=== PATIENT | female | born 1935 | race Caucasian/White ===

== ENCOUNTER → 2017-04-07 | Outpatient (CLI) | payer MEDICARE ==
[~2017-04-07] MED LIST: BACTROBAN CREAM30 G1 TOP; KEFLEX500 MG PO; UNICOMPLEX M TA1 TA1 PO; VALTREX1000 MG PO
== END ==
LOC: M.WC 03-31 11:00
DX: I87.332 Chronic venous hypertension (idiopathic) with ulcer and inflammation of left lower extremity (principal); E11.622 Type 2 diabetes mellitus with other skin ulcer; L97.321 Non-pressure chronic ulcer of left ankle limited to breakdown of skin; L97.221 Non-pressure chronic ulcer of left calf limited to breakdown of skin

== ENCOUNTER → 2017-04-28 | Outpatient (CLI) | payer MEDICARE | LOC: M.WC 01:49 | DX: E11.622 Type 2 diabetes mellitus with other skin ulcer (principal); L97.321 Non-pressure chronic ulcer of left ankle limited to breakdown of skin; I87.332 Chronic venous hypertension (idiopathic) with ulcer and inflammation of left lower extremity; L97.221 Non-pressure chronic ulcer of left calf limited to breakdown of skin ==

== ENCOUNTER → 2017-05-05 | Outpatient (CLI) | payer MEDICARE | LOC: M.WC 01:44 | DX: I87.332 Chronic venous hypertension (idiopathic) with ulcer and inflammation of left lower extremity (principal); E11.622 Type 2 diabetes mellitus with other skin ulcer; I70.242 Atherosclerosis of native arteries of left leg with ulceration of calf; I70.243 Atherosclerosis of native arteries of left leg with ulceration of ankle; L97.321 Non-pressure chronic ulcer of left ankle limited to breakdown of skin; L97.221 Non-pressure chronic ulcer of left calf limited to breakdown of skin ==

== ENCOUNTER → 2017-05-19 | Outpatient (CLI) | payer MEDICARE | LOC: M.WC 00:56 | DX: I87.332 Chronic venous hypertension (idiopathic) with ulcer and inflammation of left lower extremity (principal); E11.622 Type 2 diabetes mellitus with other skin ulcer; L97.321 Non-pressure chronic ulcer of left ankle limited to breakdown of skin; L97.221 Non-pressure chronic ulcer of left calf limited to breakdown of skin ==

== ENCOUNTER → 2017-06-02 | Outpatient (CLI) | payer MEDICARE | LOC: M.WC 01:35 | DX: E11.622 Type 2 diabetes mellitus with other skin ulcer (principal); L97.321 Non-pressure chronic ulcer of left ankle limited to breakdown of skin; I70.243 Atherosclerosis of native arteries of left leg with ulceration of ankle; L97.221 Non-pressure chronic ulcer of left calf limited to breakdown of skin; I87.332 Chronic venous hypertension (idiopathic) with ulcer and inflammation of left lower extremity ==

== ENCOUNTER → 2017-07-14 | Outpatient (CLI) | payer MEDICARE | LOC: M.WC 10:30 | DX: E11.622 Type 2 diabetes mellitus with other skin ulcer (principal); L97.821 Non-pressure chronic ulcer of other part of left lower leg limited to breakdown of skin; I87.332 Chronic venous hypertension (idiopathic) with ulcer and inflammation of left lower extremity; E11.621 Type 2 diabetes mellitus with foot ulcer; L97.521 Non-pressure chronic ulcer of other part of left foot limited to breakdown of skin; L89.892 Pressure ulcer of other site, stage 2 ==

== ENCOUNTER → 2017-08-04 | Outpatient (CLI) | payer MEDICARE | LOC: M.WC 01:33 | DX: E11.622 Type 2 diabetes mellitus with other skin ulcer (principal); I87.332 Chronic venous hypertension (idiopathic) with ulcer and inflammation of left lower extremity; L97.321 Non-pressure chronic ulcer of left ankle limited to breakdown of skin; L97.221 Non-pressure chronic ulcer of left calf limited to breakdown of skin; R73.09 Other abnormal glucose ==

== ENCOUNTER → 2017-08-25 | Outpatient (CLI) | payer MEDICARE | LOC: M.WC 03:51 | DX: E11.622 Type 2 diabetes mellitus with other skin ulcer (principal); I87.332 Chronic venous hypertension (idiopathic) with ulcer and inflammation of left lower extremity; L97.221 Non-pressure chronic ulcer of left calf limited to breakdown of skin; L97.321 Non-pressure chronic ulcer of left ankle limited to breakdown of skin; R73.09 Other abnormal glucose ==

== ENCOUNTER → 2017-09-15 | Outpatient (CLI) | payer MEDICARE | LOC: M.WC 02:26 | DX: E11.622 Type 2 diabetes mellitus with other skin ulcer (principal); I87.332 Chronic venous hypertension (idiopathic) with ulcer and inflammation of left lower extremity; L97.221 Non-pressure chronic ulcer of left calf limited to breakdown of skin; L97.321 Non-pressure chronic ulcer of left ankle limited to breakdown of skin; E11.621 Type 2 diabetes mellitus with foot ulcer; L97.521 Non-pressure chronic ulcer of other part of left foot limited to breakdown of skin; L89.892 Pressure ulcer of other site, stage 2 ==

== ENCOUNTER → 2017-10-06 | Outpatient (CLI) | payer MEDICARE | LOC: M.WC 01:38 | DX: E11.622 Type 2 diabetes mellitus with other skin ulcer (principal); I87.332 Chronic venous hypertension (idiopathic) with ulcer and inflammation of left lower extremity; L97.221 Non-pressure chronic ulcer of left calf limited to breakdown of skin; L97.321 Non-pressure chronic ulcer of left ankle limited to breakdown of skin; E11.621 Type 2 diabetes mellitus with foot ulcer; L89.892 Pressure ulcer of other site, stage 2; L97.521 Non-pressure chronic ulcer of other part of left foot limited to breakdown of skin ==

== ENCOUNTER → 2017-10-20 | Outpatient (CLI) | payer MEDICARE | LOC: M.WC 03:52 | DX: E11.622 Type 2 diabetes mellitus with other skin ulcer (principal); I87.332 Chronic venous hypertension (idiopathic) with ulcer and inflammation of left lower extremity; L97.822 Non-pressure chronic ulcer of other part of left lower leg with fat layer exposed; I70.248 Atherosclerosis of native arteries of left leg with ulceration of other part of lower leg; L97.821 Non-pressure chronic ulcer of other part of left lower leg limited to breakdown of skin; E11.621 Type 2 diabetes mellitus with foot ulcer; L89.892 Pressure ulcer of other site, stage 2; L97.521 Non-pressure chronic ulcer of other part of left foot limited to breakdown of skin ==

== ENCOUNTER → 2017-12-07 | Outpatient (CLI) | payer MEDICARE | LOC: M.WC 04:45 | DX: E11.622 Type 2 diabetes mellitus with other skin ulcer (principal); L97.321 Non-pressure chronic ulcer of left ankle limited to breakdown of skin; L97.221 Non-pressure chronic ulcer of left calf limited to breakdown of skin; I87.332 Chronic venous hypertension (idiopathic) with ulcer and inflammation of left lower extremity; I70.242 Atherosclerosis of native arteries of left leg with ulceration of calf ==

== ENCOUNTER → 2017-12-22 | Outpatient (CLI) | payer MEDICARE | LOC: M.WC 12-15 10:30 | DX: E11.622 Type 2 diabetes mellitus with other skin ulcer (principal); L97.321 Non-pressure chronic ulcer of left ankle limited to breakdown of skin; I87.332 Chronic venous hypertension (idiopathic) with ulcer and inflammation of left lower extremity; I70.243 Atherosclerosis of native arteries of left leg with ulceration of ankle ==

== ENCOUNTER → 2018-01-05 | Outpatient (CLI) | payer MEDICARE | LOC: M.WC 04:56 | DX: E11.622 Type 2 diabetes mellitus with other skin ulcer (principal); I87.332 Chronic venous hypertension (idiopathic) with ulcer and inflammation of left lower extremity; L97.321 Non-pressure chronic ulcer of left ankle limited to breakdown of skin; I70.243 Atherosclerosis of native arteries of left leg with ulceration of ankle; L84 Corns and callosities ==

== ENCOUNTER → 2018-02-02 | Outpatient (CLI) | payer MEDICARE | LOC: M.WC 01-19 10:30 | DX: E11.622 Type 2 diabetes mellitus with other skin ulcer (principal); I87.332 Chronic venous hypertension (idiopathic) with ulcer and inflammation of left lower extremity; I70.243 Atherosclerosis of native arteries of left leg with ulceration of ankle; L97.321 Non-pressure chronic ulcer of left ankle limited to breakdown of skin ==

== ENCOUNTER → 2018-02-16 | Outpatient (CLI) | payer MEDICARE | LOC: M.WC 04:49 | DX: E11.622 Type 2 diabetes mellitus with other skin ulcer (principal); I87.332 Chronic venous hypertension (idiopathic) with ulcer and inflammation of left lower extremity; I70.248 Atherosclerosis of native arteries of left leg with ulceration of other part of lower leg; L97.322 Non-pressure chronic ulcer of left ankle with fat layer exposed; L84 Corns and callosities ==

== ENCOUNTER → 2018-07-26 | Outpatient (CLI) | payer MEDICARE | LOC: M.WC 08:00 | DX: T81.89XA Other complications of procedures, not elsewhere classified, initial encounter (principal); E11.622 Type 2 diabetes mellitus with other skin ulcer; I87.332 Chronic venous hypertension (idiopathic) with ulcer and inflammation of left lower extremity; L97.222 Non-pressure chronic ulcer of left calf with fat layer exposed; L97.212 Non-pressure chronic ulcer of right calf with fat layer exposed; Y92.89 Other specified places as the place of occurrence of the external cause; Y83.8 Other surgical procedures as the cause of abnormal reaction of the patient, or of later complication, without mention of misadventure at the time of the procedure ==

== ENCOUNTER → 2018-08-23 | Outpatient (CLI) | payer MEDICARE | LOC: M.WC 02:31 | DX: T81.89XD Other complications of procedures, not elsewhere classified, subsequent encounter (principal); I87.332 Chronic venous hypertension (idiopathic) with ulcer and inflammation of left lower extremity; L97.221 Non-pressure chronic ulcer of left calf limited to breakdown of skin; L97.321 Non-pressure chronic ulcer of left ankle limited to breakdown of skin; Y83.8 Other surgical procedures as the cause of abnormal reaction of the patient, or of later complication, without mention of misadventure at the time of the procedure ==

== ENCOUNTER → 2018-09-13 | Outpatient (CLI) | payer MEDICARE | LOC: M.WC 04:59 | DX: E11.622 Type 2 diabetes mellitus with other skin ulcer (principal); I87.332 Chronic venous hypertension (idiopathic) with ulcer and inflammation of left lower extremity; L97.221 Non-pressure chronic ulcer of left calf limited to breakdown of skin; L97.321 Non-pressure chronic ulcer of left ankle limited to breakdown of skin ==

== ENCOUNTER → 2018-10-11 | Outpatient (CLI) | payer MEDICARE | LOC: M.WC 05:16 | DX: E11.622 Type 2 diabetes mellitus with other skin ulcer (principal); I87.332 Chronic venous hypertension (idiopathic) with ulcer and inflammation of left lower extremity; L97.221 Non-pressure chronic ulcer of left calf limited to breakdown of skin; L97.321 Non-pressure chronic ulcer of left ankle limited to breakdown of skin ==

== ENCOUNTER → 2018-11-01 | Outpatient (CLI) | payer MEDICARE | LOC: M.WC 05:12 | DX: I87.332 Chronic venous hypertension (idiopathic) with ulcer and inflammation of left lower extremity (principal); L97.222 Non-pressure chronic ulcer of left calf with fat layer exposed; L97.321 Non-pressure chronic ulcer of left ankle limited to breakdown of skin ==

== ENCOUNTER → 2018-11-22 | Outpatient (CLI) | payer MEDICARE | LOC: M.WC 02:03 | DX: E11.622 Type 2 diabetes mellitus with other skin ulcer (principal); I87.332 Chronic venous hypertension (idiopathic) with ulcer and inflammation of left lower extremity; L97.222 Non-pressure chronic ulcer of left calf with fat layer exposed; L97.822 Non-pressure chronic ulcer of other part of left lower leg with fat layer exposed; I87.311 Chronic venous hypertension (idiopathic) with ulcer of right lower extremity; L97.312 Non-pressure chronic ulcer of right ankle with fat layer exposed ==

== ENCOUNTER 2018-12-13 05:28 | Inpatient (IN) | payer MEDICARE ==
[~2018-12-13] VITALS: Ht 152.4 cm; Wt 44.5 kg
[2018-12-13 12:00] VITALS: BP 189/152
[2018-12-13] MEDS ORDERED: FISH OIL 1,001000 M2 PO (12:03)
[2018-12-13] MEDS ORDERED: SELENIMIN50 MCG PO (12:04)
[2018-12-13 13:55] LABS: URINE BILIRUBIN NEGATIVE (Negative); URINE BLOOD 1+ (Negative); URINE CLARITY CLEAR; URINE COLOR YELLOW; URINE GLUCOSE-RANDOM NEGATIVE (Negative); URINE KETONES NEGATIVE (Negative); URINE PROTEIN NEGATIVE (Negative); URINE UROBILINOGEN 0.2 E.U./dl (0.2-1.0)
[2018-12-13 14:02] LABS: URINE LEUKOCYTES-REFLEX 2+ (Negative); URINE NITRITE-REFLEX POSITIVE (Negative)
[2018-12-13 14:06] LABS: BACTERIA-REFLEX >30 Many /HPF (None Seen); CASTS None Seen /LPF (None Seen); CRYSTALS None Seen /LPF (None Seen); SQUAMOUS 0-3 Few /LPF (0-3); URINE RBC 0-2 Rare /HPF (0-2)
[2018-12-13 14:08] LABS: ALBUMIN 3.1 g/dL (3.4-5.0); CALCIUM 9.4 mg/dL (8.5-10.1); CREATININE 0.7 mg/dL (0.6-1.3); MAGNESIUM 2.1 mg/dL (1.8-2.4); POTASSIUM 3.8 mmol/L (3.5-5.1); TOTAL BILIRUBIN 0.3 mg/dL (<0.1-1.0); TOTAL PROTEIN 7.8 g/dL (6.4-8.2)
[2018-12-13 15:18] VITALS: BP 140/69
--- NOTE | 2018-12-13 16:45 | NUR ---
PATIENT DIRECT ADMIT FROM THE WOUND CARE CENTER. ALERT AND ORIENTED X 4, BUT A POOR HISTORIAN AT TIMES. PATIENT VERY TEARFUL AND STATING HER LEGS ARE VERY SORE. DR. NUÑEZ ADMITTING. NOTIFIED THAT PATIENT IN NEED OF PAIN MEDICATION. EUGENE RN FROM INFUSION STARTED IV TO RIGHT FOREARM WHICH BECAME INFILTRATED, IV TO LEFT FOREARM STARTED AND IVF INFUSING. UA SENT ORDERED AND DR. NUÑEZ NOTIFIED OF UTI. DAILY IV ROCEPHIN STARTED. ISIDRO CONNER FROM VASCULAR HERE AND SAW PATIENT. DR. DAVE FROM ID HERE TO SEE PATIENT. PATIENT ASKED ADMISSION QUESTIONS AND QUESTIONS BY MED STUDENT AND PATIENT CONTINUALLY SAYING "JUST ASK MY SON." PRN FENTANYL WAS ORDERED AND GIVEN TO PATIENT, PATIENT CALM THIS EVENING AND STATED HER PAIN WAS MUCH BETTER. CXR ORDERED AND RESULTS NEGATIVE. VITALS CHARTED. PATIENT DID REFUSE TO REMOVE HOME CLOTHING AND SHOES FOR NURSE. ORIENTED TO CALL LIGHT. CALL LIGHT WITHIN REACH, WILL CONTINUE TO MONITOR.
[2018-12-13 20:00] VITALS: BP 139/71
[2018-12-14 03:48] LABS: HEMATOCRIT 32.9 % (37.0-47.0); HEMOGLOBIN 10.9 gm/dL (12.0-15.0); MCH 29.9 pg (26.0-34.0); MCHC 33.2 g/dL (28.0-37.0); MCV 89.8 fL (80.0-100.0); MPV 7.9 fl. (7.2-11.1); RBC 3.66 mil/uL (4.20-5.00); RDW-CV 15.1 % (10.5-14.5); WBC 5.6 thou/uL (4.0-11.0)
[2018-12-14 05:32] LABS: ALBUMIN 2.4 g/dL (3.4-5.0); CALCIUM 8.3 mg/dL (8.5-10.1); CREATININE 0.7 mg/dL (0.6-1.3); TOTAL BILIRUBIN 0.2 mg/dL (<0.1-1.0); TOTAL PROTEIN 6.4 g/dL (6.4-8.2)
--- NOTE | 2018-12-14 05:40 | NUR ---
PT ALERT AND ORIENTED. VSS ON RA. ASSESSMENT DOCUMENTED. MEDS GIVEN PER EMAR. PAIN MEDS GIVEN PRN. PT SLEPT MOST OF SHIFT. PT HAS ALL BELONGINGS EXCEOT SHOES IN BED WITH HER. PT WEAR GLOVES. SHE SAYS "IT PREVENTS HER FINGER NAILS FROM GETTING ROUGH". PT EDUCATED ON IMPORTANCE OF CHANGING BRIEFS AAS NEEDED. BRIEFS AND PADS PROVIDED. CALL LIGHT WITHIN REACH. HOURLY ROUNDINGS MADE. WILL CONTINUE TO MONITOR.
[2018-12-14 07:50] VITALS: BP 112/45
--- NOTE | 2018-12-14 13:36 | NUR ---
SW met with pt to complete initial assessment, introduce self, and SW role. Pt alert, oriented, talkative. Pt participated in OT this morning. Pt lives at home with son support. Pt is spiritual as well. Pt lives in mobile home. Pt current with care at [facility] wound center. Pt does not have HH services, pt uses a quad cane. SW to continue to follow to assist with safe dc planning.
[2018-12-14 16:00] VITALS: BP 121/54
--- NOTE | 2018-12-14 16:28 | NUR ---
WOUND CARE NOTE: CONSULT RECEIVED FOR BLE CELLULITIS/WOUNDS. PATIENT WAS DIRECT ADMIT FROM WOUND CENTER. PATIENT EXTREMELY ANXIOUS DURING ASSESSMENT AND DRESSING CHANGES. REPEATS 'OH IT HURTS, OH IT HURTS', PATIENT HAD JUST BEEN GIVEN PAIN MEDICAITONS AND ATTEMPTED TO ASSIST WITH DEEP BREATHING FOR ANXIETY RELIEF. PATIENT LIKES TO HAVE ALL BELONGINGS NEAR HER IN BED. RIGHT LEG: CHRONIC VENOUS INSUFFICIENCY SKIN CHANGES NOTED (HEMOSIDERIN STAINING, FLAKY SKIN) ULCERATION TO THE MEDIAL ASPECT, AT MALLEOLUS. WOUND BED IS MOIST, WITH YELLOW ADHERENT SLOUGH TISSUE. CLEANSED WITH SALINE. OBTAINED CULTURES. APPLIED LOTION TO INTACT SKIN. APPLIED AQUACEL AG TO ULCER. COVERED WITH ABD. SECURED WITH SOFT CAST PADDING, KERLIX, THEN SAEID WRAP. LEFT LEG: CHRONIC VENOUS INSUFFICIENCY SKIN CHANGES NOTED (HEMOSIDERIN STAINING, FLAKY SKIN). SMALL PINPOINT LESIONS NOTED TO BOTH LATERAL AND MEDIAL ASPECTS OF THE HIND FOOT. COVERED WITH AQUACEL AG AND SECURED WITH SOFT CAST PADDING, KERLIX, THEN SAEID WRAP. PATIENT ANXIOUS ABOUT GOING HOME TOO EARLY. EDUCATED THAT SHE WAS NOT GOING ANYWHERE TODAY. PATIENT WANTS TO HAVE HER WOUND ALL HEALED BEFORE SHE GOES HOME. EDUCATED THAT THAT MIGHT NOT BE THE CASE. PATIENT FEARFUL THAT NO ONE IS GOING TO TAKE CARE OF HER WOUNDS WHEN SHE GETS HOME. HOWEVER, THE PATIENT STATED THAT SHE HAD HOME HEALTH TWICE A WEEK NORMALLY. EDUCATED PATIENT THAT SHE WOULD HAVE THEM TO HELP HER, BUT THE PATIENT STATED THEY DON'T DO GOOD OF A JOB HERE. ENCOURAGED PATIENT THAT SHE WOULD BE WELL TAKEN CARE. RECOMMEND DAILY DRESSING CHANGES-PREMEDICATE BEFORE CHANGING. PATIENT HAS SEVERE PAIN FROM WOUNDS ENCOURAGE GOOD NUTRTION/HYDRATION FOLLOW UP IN WOUND CENTER UPON DISCHARGE
--- NOTE | 2018-12-14 17:52 | NUR ---
PATIENT GIVEN PRN HYRODOCONE FOR QUIANA LE PAIN. IVF AND SCHED ABX INFUSING ORDERED. PATIENT UP TO CHAIR WITH PT AND OT BUT REFUSED TO STAY IN CHAIR. DRESSINGS CHANGED TO QUIANA LE'S BY WOUND CARE, WOUND CULTURES OBTAINED FROM [facility] LEG PER DR. MANCILLA REQUEST. PATIENT CONTINUES TO REFUSE TO GET UP TO BATHROOM, USING BEDPAN. VASC AND ID AWARE OF QUIANA US OF LE'S FROM LAST EVENING.
[2018-12-14 19:40] VITALS: BP 124/70
[2018-12-15 04:32] LABS: ABSOLUTE BASOPHILS 0.1 thou/uL (0.0-0.2); ABSOLUTE EOSINOPHILS 0.2 thou/uL (0.0-0.7); ABSOLUTE LYMPHOCYTES 0.8 thou/uL (0.8-5.3); ABSOLUTE MONOCYTES 0.6 thou/uL (0.0-1.2); ABSOLUTE NEUTROPHILS 2.4 thou/uL (1.6-8.1); BASOPHILS 1.3 %; EOSINOPHILS 5.1 %; HEMATOCRIT 31.1 % (37.0-47.0); HEMOGLOBIN 10.3 gm/dL (12.0-15.0); LYMPHOCYTES 19.5 %; MCV 90.9 fL (80.0-100.0); MONOCYTES 14.1 %; MPV 8.1 fl. (7.2-11.1); NUCLEATED RBCS 0 /100WBC; PLATELET COUNT* 258 thou/uL (150-400); RBC 3.42 mil/uL (4.20-5.00); RDW-CV 15.3 % (10.5-14.5)
[2018-12-15 04:47] LABS: ANION GAP 5 mmol/L (7-16); BUN 22 mg/dL (7-18); CHLORIDE 109 mmol/L (98-107); CO2 26 mmol/L (21-32); CREATININE 0.7 mg/dL (0.6-1.3); GLUCOSE 108 mg/dL (70-99); MAGNESIUM 1.9 mg/dL (1.8-2.4); PHOSPHORUS* 2.9 mg/dL (2.5-4.9); POTASSIUM 4.3 mmol/L (3.5-5.1); SODIUM 140 mmol/L (136-145)
[2018-12-15 05:02] LABS: CHOLESTEROL 123 mg/dL (<200); HDL CHOLESTEROL 49 mg/dL (>40); LDL CHOLESTEROL 59 mg/dL (<100); SERUM ASSESSMENT Clear; TC:HDL 2.5 Ratio (Not establshd); TRIGLYCERIDE 79 mg/dL (<150); VLDL 16 mg/dL (<40)
--- NOTE | 2018-12-15 05:50 | CON ---
[address] [address] CONSULTATION Name: ANGELA GARCIA Room: [address] IN .R.#: [id number] Admission: 12/13/18 Attend Phys: Vadim Mosley Discharge: Date of : 35 Report #: [id number] THIS REPORT FOR: //name// CC: Radha Azul DATE OF SERVICE: 12/13/2018 INFECTIOUS DISEASE CONSULTATION ATTENDING PHYSICIAN: Chester Azul DO REASON FOR EVALUATION: Chronic right lower extremity wounds complicated by skin and soft tissue infection, cellulitis. HISTORY OF PRESENT ILLNESS: Chart is reviewed and the patient is examined. This is an 82-year-old woman with apparent history of peripheral vascular disease, has chronic wounds. She is quite distressed. She is unable to give any details of her history. It is not clear that if she has got a degree of dementia, but she is crying out in pain. On questioning, it is not clear if she has had recent fever. She denies, I believe, any pulmonary-related complaints. She was seen in the [facility], who has referred for direct admission. Evaluation noted pyuria and bacteriuria, normal lactic acid. Chest x-ray showed just scattered patchy interstitial prominence, felt to be more chronic in nature. She is empirically started on antimicrobials with ceftriaxone. ALLERGIES: None known. MEDICATIONS: Current medicines include ceftriaxone, p.r.n. analgesics, antiemetics, zolpidem, and melatonin. PAST MEDICAL HISTORY: Reportedly has vascular disease, chronic bilateral lower extremity wounds involving the legs. PAST SURGICAL HISTORY: Bilateral foot surgeries. SOCIAL HISTORY: Nonsmoker, no ethanol, no illicit drug use. FAMILY HISTORY: Noncontributory. REVIEW OF SYSTEMS: Not reliably obtained. PHYSICAL EXAMINATION: GENERAL: Moderate to marked distress apparently attributed to pain, unable to redirect her, appears chronically ill, [place] [address] CONSULTATION Name: ANGELA GARCIA Room: [address]#: [id number] Admission: 12/13/18 Attend Phys: Vadim Mosley Discharge: Date of : 35 Report #: [id number] VITAL SIGNS: Temperature 98.5, pulse 72, respirations 20, and blood pressure 140/69. SKIN: Warm, dry. I do not appreciate any rashes. HEENT: Normocephalic. Extraocular muscles are intact. NECK: Supple. LUNGS: Diminished breath sounds. A few scattered crackles at the bases. HEART: Regular with occasional ectopy. ABDOMEN: Soft, nontender, no peritoneal signs. EXTREMITIES: Bilateral lower extremities have compression layered wraps to below the knee. GENITOURINARY AND RECTAL: Deferred. IMAGING: Chest x-ray as noted above. LABORATORY DATA: Lactic acid is 0.8. Electrolytes: Sodium 138, potassium 3.8, chloride 101, bicarbonate 25, anion gap of 12, BUN and creatinine 26 and 0.7, glucose of 93, albumin of 3.1, total protein 7.8. LFTs are unremarkable. Urinalysis showed 16-25 white cells, greater than 30 bacteria. ASSESSMENT AND PLAN: Bilateral lower extremity ulcers, I suspect on the basis of venous stasis insufficiency, some underlying dermatitis, also may have some arterial disease as well. Vascular Surgery is to evaluate. We will continue empiric therapy with ceftriaxone. Wound care as prescribed. Secondly, she has apparent urinary tract infection. This should give us adequate coverage as well. At this point, it is certainly difficult to ascertain details and the extent of how her situation has deteriorated. It not clear if she is capable of independent living at this point. <ELECTRONICALLY SIGNED> By: Ortiz Rico MD 12/15/18 0550 [id number] Rico MD /nt
--- NOTE | 2018-12-15 06:34 | NUR ---
PT ALERT AND ORIENTED. SEEMS FORGETFUL AT TIMES. SOMETIMES ANXIOUS. VSS ON RA. ASSESSMENT DOCUMENTED. PO PAIN MEDS GIVEN THIS SHIFT. PT SLEPT MOST OF SHIFT. LFA IV WITH NS @ 50ML/HR. MEDS PER EMAR. PT HAS ALL BELONGINGS IN BED. CALL LIGHT WITHIN REACH. HOURLY ROUNDINGS MADE. WILL CONTINUE TO MONITOR.
[2018-12-15 07:10] VITALS: BP 137/63
[2018-12-15 16:00] VITALS: BP 173/62
--- NOTE | 2018-12-15 17:28 | NUR ---
PT REMAINED ALERT TO SELF AND SITUATION. PT RESTING IN BED. PT DENIES ANY PAIN, STATES DAYS SINCE LAST BM, MILK OF MG GIVEN TO ASSIST WELL PRUNE JUICE. AWAITING BM TODAY. FALL RISK PRECAUTIONS IN PLACE. HOURLY ROUNDING COMPLETED. WILL CONTINUE TO MONITOR.
[2018-12-15 20:00] VITALS: BP 149/63
--- NOTE | 2018-12-16 04:37 | NUR ---
PATIENT HAS REMAINED ALERT AND ORIENTED X 4 THROUGHOUT THE SHIFT BUT SOMEWHAT FORGETFUL OR HAS A ROUND ABOUT WAY OF STATING WHAT SHE IS THINKING. ASSISTED WITH BEDPAN PATIENT HAS REFUSED TO STAND TO VOID. MEDICATED X 2 FOR LE PAIN. BLE'S DRESSINGS ARE CLEAN AND DRY WITH PILLOW PROVIDED FOR ELEVATION. VITAL SIGNS STABLE. CONTINUE TO MONITOR.
[2018-12-16 07:30] VITALS: BP 135/51
[2018-12-16 17:00] VITALS: BP 129/63
--- NOTE | 2018-12-16 17:00 | NUR ---
PT REMAINED ALERT AND ORIENTED AND FORGETFUL. PT C/O CHEST PAIN, VITALS AND EKG COMPLETED. PT BP WAS 170'S, AFTER 10 MINUTES AND REST BP DECREASED TO 140. EKG NORMAL, PT PAIN RELIEVED. PT STATES THEY WANT A BM, SUPPOSITORY ADMINISTERED, AWAITING RESULTS. PT UP TO CHAIR FOR MEALS. FALL RISK PRECAUTIONS IN PLACE. HOURLY ROUNDING COMPLETED. WILL CONTINUE TO MONITOR.
[2018-12-16 19:50] VITALS: BP 134/53
--- NOTE | 2018-12-17 04:39 | NUR ---
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 NO FURTHER BM'S THIS SHIFT. DID STATE HER MID CHEST HURT. MYLANTA PROVIDED TO GOOD EFFECT. MEDICATED FOR LE PAIN X 1 ALSO TO GOOD EFFECT. UP TO COMMODE TO VOID WITH SOME STRESS INCONT. TRANSFERING WITH ASSIST OF ONE, CANE AND GAIT BELT. VITAL SIGNS STABLE. CONTINUE TO MONITOR.
[2018-12-17] MEDS ORDERED: BUSPIRONE HCL5 MG PO (10:23)
--- NOTE | 2018-12-17 10:24 | EKG ---
[place] [address] ELECTROCARDIOGRAM REPORT Name: ANGELA GARCIA Room: [address] ADM IN .R.#: [id number] Admission: 12/13/18 Attend Phys: Vadim Mosley Discharge: Date of : 35 Report #: [id number] THIS REPORT FOR: //name// [facility] Test Date: 2018-12-16 Test Time: 10:04:19 Pat Name: ANGELA GARCIA Department: Room: [address] Gender: F Residential Care Officer: : 1935 Requested By: Soni Urbina Order Number: [id number] Yovani MD: Dustin Adan Measurements Intervals [place] Rate: 70 P: 81 [place]: 172 QRS: 9 QRSD: 101 T: 18 QT: 419 QTc: 453 Interpretive Statements Sinus rhythm No previous ECG available for comparison Electronically Signed On 12-17-2018 10:24:39 CDT by Dustin Adan [email or web address] <ELECTRONICALLY SIGNED> By: Dustin Adan MD, [facility] 12/17/18 1024 1004 1004 Dustin Adan MD, [facility] /EPI
[2018-12-17 16:28] VITALS: BP 170/94
--- NOTE | 2018-12-17 16:30 | NUR ---
SPOKE WITH PT.ABOUT NEEDING TO GO TO A REHAB FACILITY FOR MORE THERAPIES AT DISCHARGE. SHE SAID I DON'T KNOW ANYTHING ABOUT THOSE. YOU'LL NEED TO CALL MY SON,MARIA DE JESUS.
--- NOTE | 2018-12-17 17:07 | EKG ---
[place] [address] ELECTROCARDIOGRAM REPORT Name: ANGELA GARCIA Room: [address] ADM IN .R.#: [id number] Admission: 12/13/18 Attend Phys: Vadim Mosley Discharge: Date of : 35 Report #: [id number] THIS REPORT FOR: //name// [facility] Test Date: 2018-12-16 Test Time: 16:19:45 Pat Name: ANGELA GARCIA Department: Room: [address] Gender: F Pneumatic Press Hand: : 1935 Requested By: Soni Urbina Order Number: [id number] Yovani MD: Dustin Adan Measurements Intervals [place] Rate: 71 P: 75 [place]: 163 QRS: -8 QRSD: 112 T: 53 QT: 420 QTc: 457 Interpretive Statements Sinus rhythm Borderline intraventricular conduction delay Low voltage, precordial leads Compared to ECG 12/16/2018 10:04:19 no change Electronically Signed On 12-17-2018 17:06:44 CDT by Dustin Adan [email or web address] <ELECTRONICALLY SIGNED> By: Dustin Adan MD, [facility] 12/17/18 9263 1619 1619 Dustin Adan MD, [facility] /EPI
--- NOTE | 2018-12-17 18:59 | NUR ---
PATIENT COOPERATIVE, ANXIOUS. FORGETFUL. UP TO CHAIR FOR MEALS. DRSG CHANGES TO BLE DONE THIS AM W/ DR DAVE IN TO SEE PATIENT AT THAT TIME. SEE MAR FOR PAIN INTERVENTION. USING QUAD CANE FOR TRANSFERS/AMBULATION W/ STAFF X1 PRESENT. RESTING IN BED AT THIS TIME. DENIES OTHER NURSING NEEDS AT THIS TIME. CALL LIGHT IN REACH. HRLY ROUNDS DONE. BED ALARM ON. ~TJRN
[2018-12-17 20:00] VITALS: BP 119/53
[2018-12-18 06:01] LABS: ABSOLUTE BASOPHILS 0.1 thou/uL (0.0-0.2); ABSOLUTE EOSINOPHILS 0.3 thou/uL (0.0-0.7); ABSOLUTE LYMPHOCYTES 0.9 thou/uL (0.8-5.3); ABSOLUTE MONOCYTES 0.6 thou/uL (0.0-1.2); ABSOLUTE NEUTROPHILS 2.7 thou/uL (1.6-8.1); BASOPHILS 1.2 %; EOSINOPHILS 6.9 %; HEMATOCRIT 30.9 % (37.0-47.0); HEMOGLOBIN 10.3 gm/dL (12.0-15.0); LYMPHOCYTES 19.9 %; MCH 30.3 pg (26.0-34.0); MCHC 33.4 g/dL (28.0-37.0); MCV 90.4 fL (80.0-100.0); MONOCYTES 12.3 %; MPV 7.9 fl. (7.2-11.1); NUCLEATED RBCS 0 /100WBC; PLATELET COUNT* 249 thou/uL (150-400); POLYS 59.7 %; RBC 3.42 mil/uL (4.20-5.00); RDW-CV 15.5 % (10.5-14.5); WBC 4.5 thou/uL (4.0-11.0)
[2018-12-18 06:36] LABS: CALCIUM 8.5 mg/dL (8.5-10.1); CREATININE 0.6 mg/dL (0.6-1.3); PHOSPHORUS* 2.4 mg/dL (2.5-4.9)
--- NOTE | 2018-12-18 06:41 | NUR ---
PATIENT HAS REMAINED ALERT AND ORIENTED X 4 THROUGHOUT THE SHIFT WITH FORGETFULNESS. FIXATED ON ALEXUS PEARSON TONIGHT. DRESSING BILAT LE'S CLEAN AND DRY. ELEVATED ON PILLOWS. UP TO BSC FOR VOIDS WITH MIN ASSIST, GAIT BELT AND CANE. INCONT WELL AT TIMES. VITAL SIGNS STABLE. ANTIBIOTICS PER ORDER. CONTINUE TO MONITOR.
[2018-12-18 07:30] VITALS: BP 145/86
[2018-12-18 08:55] LABS: URINE BILIRUBIN NEGATIVE (Negative); URINE BLOOD TRACE (Negative); URINE CLARITY CLEAR; URINE COLOR YELLOW; URINE GLUCOSE-RANDOM NEGATIVE (Negative); URINE KETONES NEGATIVE (Negative); URINE LEUKOCYTES-REFLEX NEGATIVE (Negative); URINE NITRITE-REFLEX NEGATIVE (Negative); URINE PROTEIN NEGATIVE (Negative); URINE SPECIFIC GRAVITY 1.015 (1.005-1.030); URINE UROBILINOGEN 0.2 E.U./dl (0.2-1.0)
--- NOTE | 2018-12-18 13:47 | NUR ---
This RN agrees with the assessment of Mary Reyes SN for 12/18/18 at 1330.
--- NOTE | 2018-12-18 16:00 | NUR ---
PT.UP IN CHAIR. LESS CONFUSED TODAY. ASKED HER IF HER SON HAD BEEN IN TODAY. SHE SAID FOR A LITTLE BIT HE HAD TO GET HOME. ASSISTED HER IN CALLING SON. SHE LEFT MESSAGE FOR HIM TO CALL THE NURSES STAIN [phone] AND TO TALK TO CM. HE CALLED A LITTLE WHILE LATER. DISCUSSED DISCHARGE PLAN. HE WAS AGREEABLE TO SNF. HE CHOSE [facility]. FAXED REFERRAL TO [facility]. ASKED HIM TO THINK OF 2ND CHOICE. HE SAID HE WOULD CALL ME WITH SECOND CHOICE.
[2018-12-18 16:01] VITALS: BP 127/67
--- NOTE | 2018-12-18 17:23 | NUR ---
PT REMAINED ALERT AND ORIENTED AND FORGETFUL. PT HAD MULTIPLE BMS TODAY. PT UP TO CHAIR FOR MEALS. FALL RISK PRECAUTIONS IN PLACE. HOURLY ROUNDING COMPLETED. WILL CONTINUE TO MONITOR.
[2018-12-18 20:00] VITALS: BP 136/63
--- NOTE | 2018-12-19 06:14 | NUR ---
PT ALERT AND ORIENTED. FORGETFUL. ASSESSMENT DOCUMENTED. MEDS GIVEN PER EMAR. PAIN MEDS GIVEN THIS SHIFT. RFA IV WITH NS @ 30ML/HR. PT TO BSC FOR VOIDING THIS SHIFT. PT SLEPT OFF AND ON THIS SHIFT. ANTICIPATED DC TO SNF. FALL PRECAUTION IN PLACE. HOURLY ROUNDINGS MADE. WILL CONTINUE TO MONITOR.
[2018-12-19] MEDS ORDERED: ASA81BEC PO (07:15)
[2018-12-19] MEDS ORDERED: HYDROCODON-ACE1 EAC7 PO (07:15)
[2018-12-19] MEDS ORDERED: VALTREX1000 MG PO (07:15)
[2018-12-19] MEDS ORDERED: VITAMINC500 PO (07:15)
[2018-12-19] MEDS ORDERED: VITAMIN D1000 UNI1 PO (07:15)
[2018-12-19] MEDS ORDERED: DOK PLUS TABLE1 EACH PO (07:15)
[2018-12-19] MEDS ORDERED: ACETAMINOPHEN325 M1 PO (07:15)
[2018-12-19] MEDS ORDERED: MELATONIN5 M1 PO (07:15)
[2018-12-19 07:25] VITALS: BP 156/76
--- NOTE | 2018-12-19 12:09 | NUR ---
FAXED REFERRAL TO [facility] THIS AM [facility] DID NOT HAVE ANY BEDS TODAY. SPOKE WITH SON,MARIA DE JESUS ,ON PHONE. HE WAS AREEABLE TO [facility]. ASKED HIM TO CALL [facility] [phone] SHE HAD A QUESTION ABOUT PT'S LAST SKILLED STAY, WHEN IT WAS. HE SAID HE WOULD CALL HER.
[2018-12-19] MEDS ORDERED: AMOXICILLIN 50500 MG PO (14:04)
[2018-12-19 14:13] VITALS: BP 156/76
[2018-12-19 14:19] VITALS: BP 156/76
[2018-12-19 15:37] VITALS: BP 156/76
--- NOTE | 2018-12-19 15:39 | NUR ---
PT CHART COPIED. IV REMOVED. PT BELONGINGS GATHERED. PT LEFT VIA WHEELVCHAIR WITH NURSING STAFF TO SKILLED FACILITY. FALL RISK PRECAUTIONS IN PLACE. HOURLY ROUNDING COMPLETED. WILL CONTINUE TO MONITOR.
== END 2018-12-19 15:41 | DRG 299 ==
LOC: M.WC 05:28 → M.ORTHSURG 11:48
PROVIDERS: Family Medicine; Specialist; ADMIT Internal Medicine
DX: I73.9 Peripheral vascular disease, unspecified (principal); G93.41 Metabolic encephalopathy; E43 Unspecified severe protein-calorie malnutrition; L03.116 Cellulitis of left lower limb; N39.0 Urinary tract infection, site not specified; L97.829 Non-pressure chronic ulcer of other part of left lower leg with unspecified severity; L97.819 Non-pressure chronic ulcer of other part of right lower leg with unspecified severity; Z68.1 Body mass index [BMI] 19.9 or less, adult; L03.115 Cellulitis of right lower limb; D50.9 Iron deficiency anemia, unspecified; D63.8 Anemia in other chronic diseases classified elsewhere; F41.9 Anxiety disorder, unspecified; G31.84 Mild cognitive impairment of uncertain or unknown etiology; B96.1 Klebsiella pneumoniae [K. pneumoniae] as the cause of diseases classified elsewhere; I87.8 Other specified disorders of veins; L30.9 Dermatitis, unspecified; B96.5 Pseudomonas (aeruginosa) (mallei) (pseudomallei) as the cause of diseases classified elsewhere

== ENCOUNTER → 2019-01-10 | Outpatient (CLI) | payer MEDICARE ==
[~2019-01-10] MED LIST changes: +ACETAMINOPHEN325 M1 PO; +AMOXICILLIN 50500 MG PO; +ASA81BEC PO; +BUSPIRONE HCL5 MG PO; +DOK PLUS TABLE1 EACH PO; +FISH OIL 1,001000 M2 PO; +HYDROCODON-ACE1 EAC7 PO; +MELATONIN5 M1 PO; +SELENIMIN50 MCG PO; +VITAMIN D1000 UNI1 PO; +VITAMINC500 PO
== END ==
LOC: M.WC 01-04 09:00
DX: E11.622 Type 2 diabetes mellitus with other skin ulcer (principal); I87.332 Chronic venous hypertension (idiopathic) with ulcer and inflammation of left lower extremity; L97.221 Non-pressure chronic ulcer of left calf limited to breakdown of skin; L97.821 Non-pressure chronic ulcer of other part of left lower leg limited to breakdown of skin; I87.2 Venous insufficiency (chronic) (peripheral)

== ENCOUNTER → 2019-01-24 | Outpatient (CLI) | payer MEDICARE | LOC: M.WC 00:46 | DX: E11.622 Type 2 diabetes mellitus with other skin ulcer (principal); I87.332 Chronic venous hypertension (idiopathic) with ulcer and inflammation of left lower extremity; L97.221 Non-pressure chronic ulcer of left calf limited to breakdown of skin; L97.321 Non-pressure chronic ulcer of left ankle limited to breakdown of skin; R23.8 Other skin changes ==

== ENCOUNTER → 2019-02-14 | Outpatient (CLI) | payer MEDICARE | LOC: M.WC 05:07 | DX: E11.622 Type 2 diabetes mellitus with other skin ulcer (principal); I87.332 Chronic venous hypertension (idiopathic) with ulcer and inflammation of left lower extremity; L97.322 Non-pressure chronic ulcer of left ankle with fat layer exposed; L97.222 Non-pressure chronic ulcer of left calf with fat layer exposed ==

== ENCOUNTER → 2019-03-08 | Outpatient (CLI) | payer MEDICARE | LOC: M.WC 03-07 10:30 | DX: E11.622 Type 2 diabetes mellitus with other skin ulcer (principal); I87.332 Chronic venous hypertension (idiopathic) with ulcer and inflammation of left lower extremity; L97.221 Non-pressure chronic ulcer of left calf limited to breakdown of skin; L97.321 Non-pressure chronic ulcer of left ankle limited to breakdown of skin ==

== ENCOUNTER → 2019-03-15 | Outpatient (CLI) | payer MEDICARE | LOC: M.WC 05:13 | DX: E11.622 Type 2 diabetes mellitus with other skin ulcer (principal); I87.332 Chronic venous hypertension (idiopathic) with ulcer and inflammation of left lower extremity; L97.222 Non-pressure chronic ulcer of left calf with fat layer exposed; L97.322 Non-pressure chronic ulcer of left ankle with fat layer exposed ==

== ENCOUNTER → 2019-03-22 | Outpatient (CLI) | payer MEDICARE | LOC: M.WC 04:57 | DX: E11.622 Type 2 diabetes mellitus with other skin ulcer (principal); I87.332 Chronic venous hypertension (idiopathic) with ulcer and inflammation of left lower extremity; L97.222 Non-pressure chronic ulcer of left calf with fat layer exposed; L97.322 Non-pressure chronic ulcer of left ankle with fat layer exposed ==

== ENCOUNTER → 2019-03-29 | Outpatient (CLI) | payer MEDICARE | LOC: M.WC 10:00 | DX: E11.622 Type 2 diabetes mellitus with other skin ulcer (principal); I87.332 Chronic venous hypertension (idiopathic) with ulcer and inflammation of left lower extremity; L97.221 Non-pressure chronic ulcer of left calf limited to breakdown of skin; L97.321 Non-pressure chronic ulcer of left ankle limited to breakdown of skin ==

== ENCOUNTER → 2019-04-02 | Outpatient (CLI) | payer MEDICARE | LOC: M.WC 04:31 | DX: I87.332 Chronic venous hypertension (idiopathic) with ulcer and inflammation of left lower extremity (principal); E11.622 Type 2 diabetes mellitus with other skin ulcer; L97.221 Non-pressure chronic ulcer of left calf limited to breakdown of skin; L97.321 Non-pressure chronic ulcer of left ankle limited to breakdown of skin ==

== ENCOUNTER → 2019-05-03 | Outpatient (CLI) | payer OTHER | LOC: M.WC 10:30 | DX: E11.622 Type 2 diabetes mellitus with other skin ulcer (principal); I87.332 Chronic venous hypertension (idiopathic) with ulcer and inflammation of left lower extremity; L97.321 Non-pressure chronic ulcer of left ankle limited to breakdown of skin; L97.221 Non-pressure chronic ulcer of left calf limited to breakdown of skin ==

== ENCOUNTER → 2019-05-10 | Outpatient (CLI) | payer OTHER | LOC: M.WC 05:14 | DX: E11.622 Type 2 diabetes mellitus with other skin ulcer (principal); I87.332 Chronic venous hypertension (idiopathic) with ulcer and inflammation of left lower extremity; L97.221 Non-pressure chronic ulcer of left calf limited to breakdown of skin; L97.321 Non-pressure chronic ulcer of left ankle limited to breakdown of skin ==

== ENCOUNTER → 2019-05-24 | Outpatient (CLI) | payer OTHER | LOC: M.WC 10:30 | DX: E11.622 Type 2 diabetes mellitus with other skin ulcer (principal); I87.332 Chronic venous hypertension (idiopathic) with ulcer and inflammation of left lower extremity; L97.221 Non-pressure chronic ulcer of left calf limited to breakdown of skin; L97.321 Non-pressure chronic ulcer of left ankle limited to breakdown of skin ==

== ENCOUNTER → 2019-05-31 | Outpatient (CLI) | payer OTHER | LOC: M.WC 04:04 | DX: E11.622 Type 2 diabetes mellitus with other skin ulcer (principal); I87.332 Chronic venous hypertension (idiopathic) with ulcer and inflammation of left lower extremity; I70.242 Atherosclerosis of native arteries of left leg with ulceration of calf; L97.221 Non-pressure chronic ulcer of left calf limited to breakdown of skin; I70.243 Atherosclerosis of native arteries of left leg with ulceration of ankle; L97.321 Non-pressure chronic ulcer of left ankle limited to breakdown of skin ==

== ENCOUNTER → 2019-06-14 | Outpatient (CLI) | payer MEDICARE | LOC: M.WC 10:29 | DX: E11.622 Type 2 diabetes mellitus with other skin ulcer (principal); I87.332 Chronic venous hypertension (idiopathic) with ulcer and inflammation of left lower extremity; L97.221 Non-pressure chronic ulcer of left calf limited to breakdown of skin; L97.321 Non-pressure chronic ulcer of left ankle limited to breakdown of skin ==

== ENCOUNTER → 2019-06-28 | Outpatient (CLI) | payer MEDICARE | LOC: M.WC 02:28 | DX: I87.332 Chronic venous hypertension (idiopathic) with ulcer and inflammation of left lower extremity (principal); L97.322 Non-pressure chronic ulcer of left ankle with fat layer exposed; L97.222 Non-pressure chronic ulcer of left calf with fat layer exposed; I87.311 Chronic venous hypertension (idiopathic) with ulcer of right lower extremity; L97.811 Non-pressure chronic ulcer of other part of right lower leg limited to breakdown of skin; I87.2 Venous insufficiency (chronic) (peripheral) ==

== ENCOUNTER → 2019-07-25 | Outpatient (CLI) | payer MEDICARE | LOC: M.WC 05:34 | DX: E11.622 Type 2 diabetes mellitus with other skin ulcer (principal); I87.332 Chronic venous hypertension (idiopathic) with ulcer and inflammation of left lower extremity; L97.321 Non-pressure chronic ulcer of left ankle limited to breakdown of skin; L97.221 Non-pressure chronic ulcer of left calf limited to breakdown of skin; S81.801D Unspecified open wound, right lower leg, subsequent encounter; X58.XXXD Exposure to other specified factors, subsequent encounter ==

== ENCOUNTER → 2019-08-23 | Outpatient (CLI) | payer MEDICARE | LOC: M.WC 08-22 10:30 | DX: E11.622 Type 2 diabetes mellitus with other skin ulcer (principal); I87.332 Chronic venous hypertension (idiopathic) with ulcer and inflammation of left lower extremity; L97.222 Non-pressure chronic ulcer of left calf with fat layer exposed; L97.322 Non-pressure chronic ulcer of left ankle with fat layer exposed ==

== ENCOUNTER → 2019-09-20 | Outpatient (CLI) | payer MEDICARE | LOC: M.WC 01:00 | PROVIDERS: ATTEND Family Medicine | DX: E11.622 Type 2 diabetes mellitus with other skin ulcer (principal); I87.332 Chronic venous hypertension (idiopathic) with ulcer and inflammation of left lower extremity; L97.221 Non-pressure chronic ulcer of left calf limited to breakdown of skin; L97.321 Non-pressure chronic ulcer of left ankle limited to breakdown of skin; E11.621 Type 2 diabetes mellitus with foot ulcer; L89.892 Pressure ulcer of other site, stage 2; L97.522 Non-pressure chronic ulcer of other part of left foot with fat layer exposed ==

== ENCOUNTER → 2019-10-24 | Outpatient (CLI) | payer MEDICARE | LOC: M.WC 05:00 | PROVIDERS: ATTEND Family Medicine | DX: E11.622 Type 2 diabetes mellitus with other skin ulcer (principal); I87.332 Chronic venous hypertension (idiopathic) with ulcer and inflammation of left lower extremity; L97.321 Non-pressure chronic ulcer of left ankle limited to breakdown of skin; L97.221 Non-pressure chronic ulcer of left calf limited to breakdown of skin; E11.621 Type 2 diabetes mellitus with foot ulcer; L89.892 Pressure ulcer of other site, stage 2; L97.521 Non-pressure chronic ulcer of other part of left foot limited to breakdown of skin; I87.2 Venous insufficiency (chronic) (peripheral); I77.1 Stricture of artery ==